=== PATIENT | male | born 1985 | race Caucasian/White ===

== ENCOUNTER 2023-04-19 05:33 | Observation (INO) | payer BC, OTHER ==
[2023-04-19] MEDS ORDERED: Sodium Chloride 0.9% 1,000 ML IV ONE (06:01)
[2023-04-19] MEDS ORDERED: Iopamidol 755 Mg/ML 100 ML Bottle IVPUSH ONE (06:02)
[2023-04-19] MEDS ORDERED: Ketorolac 30 MG/ML SDV IM ONE (06:02)
[2023-04-19 06:14] LABS: BASOPHILS ABSOLUTE AUTO 0.01 K/mm3 (0.01-0.08); BASOPHILS PERCENT AUTO 0.1 % (0.1-1.2); EOSINOPHILS ABSOLUTE AUTO 0.19 K/mm3 (0.04-0.54); EOSINOPHILS PERCENT AUTO 1.7 (0.8-7.0); HEMATOCRIT 45.8 % (40.1-51.0); HEMOGLOBIN 15.5 gm/dl (13.7-17.5); IMMATURE GRAN ABSOLUTE AUTO 0.02 K/mm3 (0.00-0.10); IMMATURE GRAN PERCENT AUTO 0.2 % (<=1.0); LYMPHOCYTES ABSOLUTE AUTO 1.41 K/mm3 (1.32-3.57); LYMPHOCYTES PERCENT AUTO 12.6 % (21.8-53.1); MEAN CORPUSCULAR HEMOGLOBIN 30.5 pg (25.7-32.2); MEAN CORPUSCULAR HGB CONC 33.8 g/dl (32.2-35.5); MEAN CORPUSCULAR VOLUME 90.2 fl (79.0-92.2); MEAN PLATELET VOLUME 9.4 fl (9.4-12.3); MONOCYTES ABSOLUTE AUTO 0.61 K/mm3 (0.30-0.82); MONOCYTES PERCENT AUTO 5.4 % (5.3-12.2); NEUTROPHILS ABSOLUTE AUTO 8.97 K/mm3 (1.78-5.38); PLATELET COUNT,PLT 216 K/mm3 (163-337); RED BLOOD CELL COUNT 5.08 M/mm3 (4.63-6.08); WHITE BLOOD CELL COUNT,WBC 11.21 K/mm3 (4.23-9.07)
[2023-04-19 06:40] LABS: A/G RATIO 1.2 (1-2); ALBUMIN 3.7 g/dl (3.4-5.0); ANION GAP 9.9 (5-15); BILIRUBIN TOTAL 0.6 mg/dL (0.2-1.0); BUN/CREATININE RATIO 12.7 (14-18); CALCIUM 8.9 mg/dL (8.5-10.1); CREATININE 1.1 mg/dL (0.7-1.3); EST CRCL DRUG DOSING (CG) 106.69 mL/min; POTASSIUM,K 3.9 mEq/L (3.5-5.1); PROTEIN TOTAL,TP 6.7 g/dl (6.4-8.2)
[2023-04-19] MEDS ORDERED: fentaNYL 100 MCG/2 ML SDV IVPUSH PRN ×2 (06:54→12:36)
[2023-04-19] MEDS ORDERED: Piperacillin/Tazobactam 4.5 GM in Sodium Chloride 0.9% 100 ML IV ONE ×3 (07:31→15:30)
[2023-04-19] MEDS ORDERED: Bupivacaine 0.5%/EPINEPHrine 1:200,000 50 ML MDV ONE (09:41)
[2023-04-19] MEDS ORDERED: Lidocaine 1% 30 ML SDV ONE (09:41)
[2023-04-19] MEDS ORDERED: Lidocaine 1% 8 ML ONE (09:42)
[2023-04-19] MEDS ORDERED: Propofol 200 MG/20 ML SDV ONE (09:43)
[2023-04-19] MEDS ORDERED: Neostigmine Methylsulfate 10 MG/10 ML MDV ONE (09:43)
[2023-04-19] MEDS ORDERED: Rocuronium 50 MG/5 ML Vial ONE (09:43)
[2023-04-19] MEDS ORDERED: fentaNYL 250 MCG/5 ML SDV ONE (09:43)
[2023-04-19] MEDS ORDERED: Succinylcholine 200 MG/10 ML MDV ONE (09:50)
[2023-04-19] MEDS ORDERED: HYDROmorphone 0.5 MG/0.5 ML Syringe ONE (10:02)
[2023-04-19] MEDS ORDERED: Ketamine 500 mg/10 ML MDV ONE (10:08)
[2023-04-19] MEDS ORDERED: Dexamethasone 4 MG/ML 5 ML MDV ONE (10:12)
[2023-04-19] MEDS ORDERED: Ondansetron 4 MG/2 ML SDV ONE (10:12)
[2023-04-19] MEDS ORDERED: Midazolam 1 MG/ML 2 ML SDV ONE (10:15)
[2023-04-19] MEDS ORDERED: Lactated Ringers 1,000 ML IV SCH ×2 (10:15→14:45)
[2023-04-19] MEDS ORDERED: diphenhydrAMINE 50 MG/ML SDV ONE (10:59)
[2023-04-19] MEDS ORDERED: Lactated Ringers 1,000 ML ONE (11:44)
[2023-04-19] MEDS ORDERED: Ketorolac 30 MG/ML SDV ONE (12:02)
[2023-04-19] MEDS ORDERED: HYDROmorphone 0.5 MG/0.5 ML Syringe IVPUSH PRN (12:36)
[2023-04-19] MEDS ORDERED: Ketorolac 30 MG/ML SDV IVPUSH PRN (14:28)
[2023-04-19] MEDS ORDERED: Ondansetron 4 MG/2 ML SDV IVPUSH PRN (14:32)
[2023-04-19] MEDS: Piperacillin/Tazobactam 4.5 GM in Sodium Chloride 0.9% 100 ML IV SCH ×2 (15:34→22:33)
[2023-04-19] MEDS: HYDROmorphone 0.5 MG/0.5 ML Syringe IVPUSH PRN ×2 (15:34→21:51)
[2023-04-19] MEDS: Acetaminophen 325 MG Tab PO PRN (16:24)
[2023-04-19] MEDS: oxyCODONE 5 MG Tab PO PRN (16:24)
[2023-04-19] MEDS ORDERED: Piperacillin/Tazobactam 4.5 GM in Sodium Chloride 0.9% 100 ML IV SCH (23:30)
[2023-04-20] MEDS: oxyCODONE 5 MG Tab PO PRN ×2 (01:03→08:52)
[2023-04-20] MEDS: Acetaminophen 325 MG Tab PO PRN ×2 (01:04→08:53)
[2023-04-20] MEDS: Piperacillin/Tazobactam 4.5 GM in Sodium Chloride 0.9% 100 ML IV SCH ×2 (06:05→07:27)
== END 2023-04-20 10:20 | disposition home or self-care (01) ==
LOC: JD.ED 05:33 → JD.SDS 08:07 → JD.MS 13:41
PROVIDERS: ADMIT Surgery; ATTEND Surgery
DX: K35.32 Acute appendicitis with perforation, localized peritonitis, and gangrene, without abscess (principal); G47.30 Sleep apnea, unspecified; F98.8 Other specified behavioral and emotional disorders with onset usually occurring in childhood and adolescence; F41.9 Anxiety disorder, unspecified; Z88.5 Allergy status to narcotic agent; Z79.899 Other long term (current) drug therapy; Z87.891 Personal history of nicotine dependence
CPT/HCPCS: 36415; 44970; 74177; 80053; 83690; 85025; 93005; 96361; 96365; 96366; 96372; 96375; 96376; 99285; A9270; G0378; J0330; J1100; J1170; J1200; J1885; J2250; J2405; J2543; J2704; J2710; J3010; J3490; J7030; J7120; Q9967; 93010